=== PATIENT | male | born 1960 | race Caucasian/White ===

== ENCOUNTER → 2018-11-24 09:39 | Outpatient (CLI) | payer SELFPAY ==
--- NOTE | 2018-11-23 | IMM_PTH ---
PATIENT: AISSATOU TUCKER LOC: [facility] U#:[id number] AGE/SX: 65/M ROOM: RE11/24/[address]: Dr. Trae Saravia MD : 1960 BED: DIS: SPEC #: [id number] RECD: 11/27/18 12:21 STATUS: CLAUDIA HANDY #: [id number] SHANNAN: 11/23/18 00:[address]: Trae Saravia DEPT: IMMUNOHISTOCHEMISTRY RECD BY: Dejah Cline Tissues: A - PROSTATE RIGHT B - PROSTATE RIGHT D - PROSTATE LEFT E - PROSTATE LEFT Procedures: 34BE12 (add) P40 (add) 34BE12 (initial) PHYSICIAN & INSTITUTION [place] [id number] SPECIMEN INFORMATION: Tissue Source: A - Right prostate apex, B - Right prostate mid, D - Left prostate apex, E - Left prostate mid Clinical Info: Elevated PSA Specimen Number: [id number] A, B, D & E CPT code: 82874, 29569 x7 METHODOLOGY: Deparaffinized sections of prefer/formalin-fixed tissue or PAP/DQ stained slides are incubated with monoclonal/polyclonal antibodies/oligonucleotide probes. Localization is made via biotin free immunoperoxidase method. Appropriate controls are performed and reacted as expected. Results on target cell population are indicated in the following table: RESULTS: ANTIBODY / CLONE RESULT Block A 34BE12 (34BE12) negative P40 (BC28) negative Block B 34BE12 (34BE12) negative P40 (BC28) negative Block D 34BE12 (34BE12) positive P40 (BC28) negative Block E 34BE12 (34BE12) positive P40 (BC28) positive These tests were developed and their performance characteristics determined by [facility]. They may not have been cleared or approved by the U.S. Food and Drug Administration. The FDA has determined that such clearance or approval is not necessary. INTERPRETATION: A. Right prostate, apex, core biopsy: Adenocarcinoma. B. Right prostate, mid, core biopsy: Adenocarcinoma. D. Left prostate, apex, core biopsy: Benign prostatic tissue. E. Left prostate, mid, core biopsy: Benign prostatic tissue. AM:aroldo 11/28/18
--- NOTE | 2018-11-23 08:00 | PROSBIL_PTH ---
PATIENT: AISSATOU TUCKER LOC: [facility] U#:[id number] AGE/SX: 65/M ROOM: RE11/24/[address]: Dr. Trae Saravia MD : 1960 BED: DIS: SPEC #: [id number] RECD: 11/23/18 18:54 STATUS: CLAUDIA HANDY #: [id number] SHANNAN: 11/23/18 08:[address]: Trae Saravia DEPT: SURGICAL PATHOLOGY RECD BY: Kyaw Neumann Tissues: A - PROSTATE RIGHT B - PROSTATE RIGHT C - PROSTATE RIGHT D - PROSTATE LEFT E - PROSTATE LEFT F - PROSTATE LEFT Procedures: PROSTATE BX HEADER OPERATION: Prostate biopsy PRE-OP DIAGNOSIS: Elevated PSA TISSUE SUBMITTED: A - Right apex, B - Right mid, C - Right base, D - Left apex, E - Left mid, F - Left base MICROSCOPIC DIAGNOSIS A. Right prostate, apex, core biopsy: Adenocarcinoma: Garland grade: 7 (3+4) Cores involved: 1 out of 2 cores Tissue involved: <1% Greatest tumor length: Less than 1.0 mm Other findings: Chronic inflammation and focal high grade PIN. See comment. B. Right prostate, mid, core biopsy: Adenocarcinoma: Garland grade: 6 (3+3) Cores involved: 1 out of 2 cores Tissue involved: <1% Greatest tumor length: Less than 1.0mm C. Right prostate, base, core biopsy: Glandular atrophy and mild chronic inflammation. D. Left prostate, apex, core biopsy: Focal high-grade prostatic intraepithelial neoplasia (HGPIN). See comment. E. Left prostate, mid, core biopsy: Mild chronic inflammation and focal glandular atrophy. See comment. F. Left prostate, base, core biopsy: Focal high-grade prostatic intraepithelial neoplasia (HGPIN). Focal glandular atrophy and mild chronic inflammation. AM:aroldo 11/27/18 COMMENT A, B, D & E - Immunohistochemistry ([id number]) supports the above diagnosis. Case has been reviewed in consultation with Dr. Goodwin who concurs with the above diagnosis. IDC:[email or web address] MICROSCOPIC DESCRIPTION Slides are reviewed. GROSS DESCRIPTION A - Received is one container designated prostate, right apex. The specimen consists of two elongated fragments of light mcmillan-white soft tissue measuring 1 and 1.3 cm in length and 0.1 cm in diameter. The specimen is totally submitted in one cassette. B - Received is one container designated prostate, right mid. The specimen consists of two elongated fragments of light mcmillan-white soft tissue each measuring 1 cm in length and 0.1 cm in diameter. The specimen is totally submitted in one cassette. C - Received is one container designated prostate, right base. The specimen consists of two elongated fragments of light mcmillan-white soft tissue measuring 1 and 1.5 cm in length and 0.1 cm in diameter. The specimen is totally submitted in one cassette. D - Received is one container designated prostate, left apex. The specimen consists of two elongated fragments of light mcmillan-white soft tissue measuring 1 and 1.5 cm in length and 0.1 cm in diameter. The specimen is totally submitted in one cassette. E - Received is one container designated prostate, left mid. The specimen consists of two elongated fragments of light mcmillan-white soft tissue measuring 1.3 and 1.5 cm in length and 0.1 cm in diameter. The specimen is totally submitted in one cassette. F - Received is one container designated prostate, left base. The specimen consists of two elongated fragments of light mcmillan-white soft tissue each measuring 0.8 cm in length and 0.1 cm in diameter. The specimen is totally submitted in one cassette. / SJ:rg 11/24/18 TC:0 CPT: 44031 x6
== END ==
PROVIDERS: Referring Provider Urology; Visit Provider Urology
DX: R97.20 Elevated prostate specific antigen [PSA] (principal)
CPT/HCPCS: 88305; 88341; 88342; G0416

== ENCOUNTER 2019-02-14 05:23 | Day surgery (SDC) | payer SELFPAY ==
[2019-02-06 11:26] VITALS: BP 127/73; PULSE 79; RESP 17; TEMP 36.7; O2SAT 97; BMI 32.6
--- NOTE | 2019-02-06 11:42 | SDCEKG_ITS ---
Test Reason : Blood Pressure : / mmHG Vent. Rate : 078 BPM Atrial Rate : 078 BPM P-R Int : 144 ms QRS Dur : 094 ms QT Int : 384 ms P-R-T Axes : 011 018 010 degrees QTc Int : 437 ms Normal sinus rhythm Normal ECG Confirmed by MARY GRACE EDUARDO ([id number]), science editor BILL SERRATO ([id number]) on 02/12/2019 3:42:16 PM Referred By: Trae Saravia Confirmed By:MARY GRACE EDUARDO
[2019-02-06 12:27] LABS: Hematocrit 45.5 % (40-54); Hemoglobin 15.7 g/dl (13.0-16.5); Mean Corp Hgb Conc 34.5 g/gl (32-36); Mean Corpuscular Hgb 28.7 pg (27.0-32.0); Mean Corpuscular Volume 83.2 fL (80-94); Mean Platelet Vol. 9.3 fl (6.2-12.0); Platelet Count 189 K/mm3 (150-450); RBC Distribution Width CV 12.5 % (11.6-14.6); Red Blood Count 5.47 M/mm3 (4.6-6.2); White Blood Count 7.1 K/mm3 (4.4-11.0)
[2019-02-06 12:36] LABS: Scan Indicated on CBC? Y/N NO
[2019-02-06 12:52] LABS: Anion Gap 4 (5-15); BUN 13 mg/dL (7-18); BUN/Creat Ratio 16.1 RATIO (10-20); Calcium,Total 8.6 mg/dL (8.5-10.1); Chloride 107 mmol/L (98-107); Creatinine, Serum 0.81 mg/dL (0.70-1.30); EST Glomerular Filtration Rate 103 mL/min (>60); Est Glom Filt Rate - Afr Amer 125 mL/min (>60); Estimated Creatinine Clearance 84.36 ml/min; Glucose 95 mg/dL (74-106); Sodium Level 136 mmol/L (136-145)
[2019-02-14] VITALS (13 sets, daily range): BP systolic 83–157; BP diastolic 45–92; PULSE 66–104; RESP 16–18; TEMP 36.6–37.1; O2SAT 93–98; BMI 32.6; BMI 32.7
--- NOTE | 2019-02-14 07:30 | PROST_PTH ---
PATIENT: AISSATOU TUCKER LOC: [id number] U#:[id number] AGE/SX: 58/M ROOM: RE02/14/[address]: Dr. Trae Saravia MD : 1960 BED: DIS: 02/15/2019 SPEC #: [id number] RECD: 02/14/19 13:04 STATUS: CLAUDIA RETerry #: [id number] SHANNAN: 02/14/19 07:[address]: Trae Saravia DEPT: SURGICAL PATHOLOGY RECD BY: Kyaw Neumann ENTERED: 02/14/19 13:52 SP TYPE: PROSTATE OTHR DR: Dr. Mati Chou, DO Tissues: A - Prostate, NOS B - Prostate, NOS Procedures: Surgery Specimen Level IV Surgery Specimen Level HEADER OPERATION: Laparoscopic robotic radical prostatectomy PRE-OP DIAGNOSIS: Malignant neoplasm of prostate TISSUE SUBMITTED: A - Prostate, B - Fat over prostate MICROSCOPIC DIAGNOSIS A. Prostate, radical prostatectomy: Adenocarcinoma. See cancer checklist below. B. Fat over prostate, biopsy: Mature adipose tissue. No evidence of malignancy. AM:aroldo 02/16/19 COMMENT PROSTATE CANCER (RADICAL) SUMMARY: Procedure - radical prostatectomy Prostate size - 4.8 x 4.5 x 3.7 cm Prostate weight - 48.9 gm Lymph node sampling - no lymph present Histologic type - adenocarcinoma Histologic grade ([place] Pattern): Primary pattern - 3 Secondary pattern - 4 Total Kaela score - 7 Tumor Quantitation - 3.3 x 2.3 x 1.8 cm (from glass slides) Extraprostatic extension - indeterminate Seminal vesicle invasion - not identified Margins - margins involved by invasive carcinoma: Right posterior, right anterior and right anteroposterior Treatment effect on carcinoma - unknown Lymph-Vascular invasion - not identified Perineural invasion - focally present PATHOLOGIC STAGE: pT2b Nx Mx The above summary is in compliance with [employer] (CAP) Cancer Protocols Checklist and [place] Joint Committee on Cancer (AJCC), Staging Manual, 8th Ed. MICROSCOPIC DESCRIPTION Slides are reviewed. GROSS DESCRIPTION A - Received in fixative is one container labeled with the patient's name and designated prostate. The specimen consists of a prostate gland with attached seminal vesicles and vas deferens weighing 48.9 gm. The specimen is nodular in appearance and measures 4.8 cm transversely, 4.5 cm anterior-posteriorly and 3.7 cm craniocaudally. On palpation, nodularity is identified in the right anterior and right posterior portions. The specimen is differentially inked as follows: anterior - red, posterior - black, right half - blue and left half - green. The gland is cut from apex of gland to base of gland serially and at approximately 3 to 4 mm intervals. [employer] sections are submitted as follows: 1 - distal urethral margin, 2 - proximal urethral margin (bladder shave), 3 - seminal vesicles, 4 - most basal section of prostate, 5-9 - apex of gland, 10-19 - mid portion of gland, 20-28 - basal portion of gland. / AM:aroldo 02/15/19 B - Received in fixative is one container labeled with the patient's name and designated fat over prostate. The specimen consists of an irregular fragment of yellow fatty tissue measuring 3.5 x 2 x 1 cm. Serial sections do not reveal mass lesions. The specimen is sectioned and totally submitted in two cassettes. / AM:aroldo 02/15/19 TC:0 CPT: 19197, 51223
[2019-02-14] MEDS: Cefazolin 2 GM in 0.9% Normal Saline 100 ML IV (07:38)
[2019-02-14] MEDS: Bupivacaine Mpf 0.5% 30 ML VIAL (11:20)
--- NOTE | 2019-02-14 11:20 | PCM.DC.URO ---
Discharge Diet: Light diet - advance as tolerated Discharge Activity: Return to Normal Activity, May not drive while taking narcotic pain medications., May Shower Return to work on:: 03/28/19 May shower in (days): 1 May resume sexual activity in: 6 weeks Call your doctor if your incision/area has: Continuous Slow Oozing, Sudden Increased Bleeding, Increased Pain/ Swelling, Increased Redness, Foul Smelling Discharge, Swelling at the incision site Call your doctor if you observe: Fever of 101 or Higher, Inability to have a bowel movement, Uncontrolled pain Suture Line Care: Avoid Pulling/Pushing Catheter: Lee to leg bag, Lee to large bag Drain: Brohman Allergies/Adverse Reactions: Allergies No Known Allergies Allergy (Verified 02/06/19 11:19) Medications to take at Discharge Lisinopril [Zestril] 20 mg PO DAILY 02/06/19 Ciprofloxacin [Cipro] 500 mg PO BID #6 tab 02/14/19 Docusate Sodium [Colace] 100 mg PO BID #20 cap 02/14/19 Hydrocodone/Acetaminophen [[place] 5-325 Tablet] 1 ea PO Q6H PRN PRN 10 Days #20 tab 02/14/19 The following prescriptions were given: Hydrocodone/Acetaminophen [[place] 5-325 Tablet] 1 ea PO Q6H PRN PRN 10 Days #20 tab PRN Reason: Pain Ciprofloxacin [Cipro] 500 mg PO BID #6 tab Docusate Sodium [Colace] 100 mg PO BID #20 cap Primary Care Physician: Mati Chou DO [Primary Care Provider] - Test Results: Test results from this visit will be discussed in further detail at your follow-up appointment, if applicable. Please Follow Up With: Trae Saravia MD When: please call to make an appointment.
--- NOTE | 2019-02-14 11:21 | PCM.OPRPT ---
Report of Operation Date of Procedure: 02/14/19 Pre-Operative Diagnosis: Prostate cancer Post-Operative Diagnosis: Same Surgery/Procedure Performed:: Laparoscopic robotic assisted radical prostatectomy bilateral nerve sparing Description of Surgical Findings:: 58-year-old male with prostate cancer is elected to undergo radical prostatectomy for curative intent he understands that the risk of failure to cure him the cancer there is given impotence and risk of incontinence with the surgery also risk of anesthesia blood loss of bleeding infection. After reviewing everything with the patient, he wishes to proceed with a radical prostatectomy for prostate cancer. 58-year-old male taken back to the operating room and smooth induction of general anesthesia he was placed in dorsolithotomy position The abdomen was shaved prepped and draped in usual post fashion I infiltrated the umbilicus with lidocaine made an incision across the top part of the umbilicus placed a Veress needle into the peritoneal cavity and insufflated the peritoneal cavity with CO2 gas. I then placed my ports. We docked the robot. Started with the dissection posterior to the bladder. Dissected out the vas deferens and seminal vesicles. Dissected out the space below the prostate above the nonbilious fascia. And then pulled the robot back out of the pelvis and dropped the bladder and immediately recognized that he had a hernia repair with mesh stayed out of the mesh I worked the bladder off the mesh the mesh was on the patient's right side coming right through the direct and indirect areas of the hernia. After dissecting the bladder off the mesh we then created the space of Retzius, I then dissected the prostate laterally in the right side prostate letter in the left side then came back to the bladder neck dissected between the broad bladder and the prostate and the bladder neck fibers came across the catheter pulled back the catheter dissected between the bladder and the prostate until came across some vesicles and vas deferens. We then elevated the prostate I then started with the dissection anterior to the prostate sweeping the neurovascular bundle off the top of the prostate worked my way laterally on the patient's right side worked my way all the way lateral was able to get a nice plane developed in the right side and a nice nerve sparing dissection to sweep all the neurovascular pain of the prostate came to the pedicle with clips. Then went to the left side and dissected left-sided a small flap of tissue was created there was a violation of the prostate capsule this was read immediately recognized I then created course around this violation and then dissected the nerve tissues off the lateral aspect of the prostate and the left side dissection the left side was not as precise as the right side but still perform nerve sparing on the left side then came to the pedicles on the left side these pedicles were taken elevated the prostate off did not be his fascia transected through the dorsal vein complex transected to the urethra stitched up the dorsal vein complex with 3-0 Vicryl there is no bleeding from the dorsal vein complex lower the pneumo and there is no bleeding from the dorsal vein complex of the veins or the arterial clips on the pedicles. After this we then did an anastomosis between the bladder neck and urethra this is over a catheter with a 3-0 running V lock stitch at the completion of the anastomosis I then went back we reperitonealized the bladder over the mesh to make sure that the mesh was covered by peritoneum. We then closed the 1012 Sloan Sloan Friedman stitch on the air seal port and then we extracted the prostate and then we closed the extraction site in the umbilicus with [id number] stitches all the stitches were then all the incisions and the skin were closed with subcuticular stitches patient anesthetic is currently being reversed he has a catheter we flush the catheter was flushing well and draining well. Type of Anesthesia:: General Drains: Lee Estimated Blood Loss (mL): 150cc - Admit VTE Documentation VTE Present on Admission: No VTE Mechan Device Prophylaxis: SCD's
[2019-02-14 12:44] LABS: Absolute Lymphocyte Count 0.53 X10^3/ul (0.83-4.51); Eosinophil# 0.01 X10^3/uL; Eosinophils% 0.1 % (0-5); Hemoglobin 13.8 g/dl (13.0-16.5); Lymphocyte # 0.53 X10^3/ul (4.0); Lymphocyte % 5.2 % (19-41); Mean Corp Hgb Conc 34.5 g/gl (32-36); Mean Corpuscular Hgb 29.2 pg (27.0-32.0); Mean Corpuscular Volume 84.6 fL (80-94); Mean Platelet Vol. 8.7 fl (6.2-12.0); Monocyte% 5.9 % (0-10); Neutrophil # 9.04 X10^3/uL (2.7-7.7); Neutrophil % 88.6 % (47-70); Platelet Count 167 K/mm3 (150-450); RBC Distribution Width CV 12.3 % (11.6-14.6); RBC Distribution Width SD 37.2 fl (35.1-43.9); Red Blood Count 4.73 M/mm3 (4.6-6.2); White Blood Count 10.2 K/mm3 (4.4-11.0)
[2019-02-14 12:50] LABS: Differential Indicated SCAN CRITERIA MET; POSITIVE COUNT NO; POSITIVE DIFFERENTIAL YES; POSITIVE MORPHOLOGY NO
[2019-02-14 12:51] LABS: Anion Gap 4 (5-15); BUN 18 mg/dL (7-18); BUN/Creat Ratio 17.3 RATIO (10-20); Calcium,Total 8.1 mg/dL (8.5-10.1); Chloride 108 mmol/L (98-107); Creatinine, Serum 1.04 mg/dL (0.70-1.30); EST Glomerular Filtration Rate 77 mL/min (>60); Est Glom Filt Rate - Afr Amer 94 mL/min (>60); Estimated Creatinine Clearance 65.71 ml/min; Glucose 111 mg/dL (74-106); Potassium 4.5 mmol/L (3.5-5.1); Sodium Level 139 mmol/L (136-145)
--- NOTE | 2019-02-14 12:56 | NURSING ---
pt c/o feeling like he needs to urinate. FC checked, draining red urine w/o difficulty. will continue to monitor.
[2019-02-14 13:17] LABS: Platelet Estimate ADEQUATE (ADEQ); Red Cell Morphology NORM C+C NORMAL (NORM C&C)
[2019-02-14] MEDS: 0.45% Normal Saline 1,000 ML 125 ML IV (16:10)
[2019-02-14] MEDS: Acetaminophen 500 MG Tablet PO ×2 (16:10→20:34)
[2019-02-14] MEDS: Ciprofloxacin 500 MG Tablet PO (16:11)
[2019-02-14] MEDS: Ketorolac 15 MG/ML Vial IV (18:20)
[2019-02-14] MEDS: 0.9% NaCl Peripheral Flush Adult/Peds IV (18:21)
[2019-02-15] MEDS: Ciprofloxacin 500 MG Tablet PO ×2 (00:13→09:04)
[2019-02-15] MEDS: 0.45% Normal Saline 1,000 ML 125 ML IV (00:13)
[2019-02-15] MEDS: Docusate Sodium 100 MG Capsule PO ×2 (00:13→09:04)
[2019-02-15] MEDS: Ketorolac 15 MG/ML Vial IV ×3 (00:21→11:36)
[2019-02-15 00:29] VITALS: BP 107/66; PULSE 72; RESP 18; TEMP 36.9; O2SAT 94
[2019-02-15 04:29] VITALS: BP 116/70; PULSE 73; RESP 18; TEMP 36.9; O2SAT 98
[2019-02-15 05:49] LABS: Hematocrit 38.1 % (40-54); Hemoglobin 13.1 g/dl (13.0-16.5); Mean Corp Hgb Conc 34.4 g/gl (32-36); Mean Corpuscular Hgb 29.6 pg (27.0-32.0); Platelet Count 145 K/mm3 (150-450); RBC Distribution Width CV 12.5 % (11.6-14.6); RBC Distribution Width SD 38.5 fl (35.1-43.9); Red Blood Count 4.43 M/mm3 (4.6-6.2); White Blood Count 6.6 K/mm3 (4.4-11.0)
[2019-02-15 05:50] LABS: Scan Indicated on CBC? Y/N NO
[2019-02-15 06:03] LABS: Anion Gap 4 (5-15); BUN 14 mg/dL (7-18); BUN/Creat Ratio 14.6 RATIO (10-20); Calcium,Total 7.8 mg/dL (8.5-10.1); Chloride 109 mmol/L (98-107); Creatinine, Serum 0.96 mg/dL (0.70-1.30); EST Glomerular Filtration Rate 85 mL/min (>60); Est Glom Filt Rate - Afr Amer 103 mL/min (>60); Estimated Creatinine Clearance 68.52 ml/min; Glucose 94 mg/dL (74-106); Potassium 4.2 mmol/L (3.5-5.1); Sodium Level 140 mmol/L (136-145)
[2019-02-15] MEDS: 0.9% NaCl Peripheral Flush Adult/Peds IV ×2 (07:55→11:36)
[2019-02-15 09:00] VITALS: BP 138/80; PULSE 85; RESP 18; TEMP 37.6; O2SAT 93
[2019-02-15] MEDS: Lisinopril 20 MG Tablet PO (09:04)
[2019-02-15] MEDS: Pantoprazole Sodium 20 MG Tablet PO (09:04)
[2019-02-15] MEDS: Magnesium Hydroxide 30 ML UDC 15 ML PO (09:04)
--- NOTE | 2019-02-15 11:53 | NURSING ---
TEACHING DONE W/PATIENT & ON LEG BAG & LONG BAG. EXPLAINED HOW TO CHANGE FROM ONE TO OTHER & HOW TO EMPTY BOTH. DEMONSTRATION DONE. STATE UNDERSTANDING.
[2019-02-15 11:56] VITALS: BP 130/70; PULSE 76; RESP 18; TEMP 37.5; O2SAT 94
== END 2019-02-15 13:07 | disposition home or self-care (01) ==
LOC: ACINP 05:26 → MS3OUT 02-15 08:02 → MS3 02-15 08:02
PROVIDERS: Family Provider Family Medicine; PCP Family Medicine; Referring Provider Urology; Visit Provider Urology
PROC: 0VT04ZZ Resection of Prostate, Percutaneous Endoscopic Approach (ICD-10-PCS; CPT 55866; principal; 2019-02-14 07:10)
DX: C61 Malignant neoplasm of prostate (principal); I10 Essential (primary) hypertension; Z87.891 Personal history of nicotine dependence; Z79.899 Other long term (current) drug therapy; Z80.42 Family history of malignant neoplasm of prostate
CPT/HCPCS: 00920; 55866; 36415; 80048; 85025; 85027; 86850; 86900; 88305; 88309; 93005; J7030; J7120; A4216; J2405